=== PATIENT | male | born 2000 | race Caucasian/White ===

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

== ENCOUNTER 2021-03-11 13:26 | Emergency (ER) | payer MEDICAID ==
[2021-03-11 13:40] VITALS: BP 112/63
== END 2021-03-11 15:58 | disposition home or self-care (01) ==
LOC: ED 13:26
DX: S09.90XA Unspecified injury of head, initial encounter (principal); S00.81XA Abrasion of other part of head, initial encounter; W01.198A Fall on same level from slipping, tripping and stumbling with subsequent striking against other object, initial encounter